=== PATIENT | male | born 1945 | race Caucasian/White ===

== ENCOUNTER 2024-09-17 09:13 | Emergency (ER) | payer OTHER ==
[2024-09-17] MEDS ORDERED: Ipratropium/Albuterol 3 ML NEB ONE (09:23)
[2024-09-17] MEDS ORDERED: Albuterol 2.5 MG (0.5 mL) NEB ONE (09:23)
[2024-09-17] MEDS ORDERED: Dexamethasone 10 MG/ML VIAL ONE (09:27)
[2024-09-17] MEDS ORDERED: LevoFLOXacin 750 mg/D5W 150 ml Premix Bag ONE (09:27)
[2024-09-17] MEDS ORDERED: Magnesium 2 GM/50 ML BAG (IN WATER) ONE (09:28)
[2024-09-17 09:47] LABS: #Basophils 0.08 10x3/uL (0.0-0.2); #Eosinophils 0.21 10x3/uL (0.0-0.5); #Monocytes 0.53 10x3/uL (0.0-1.1); #Neutrophils 9.78 10x3/uL (1.5-8.4); %Basophils 0.7 % (0.0-2.0); %Eosinophils 1.8 % (0.0-6.0); %Monocytes 4.4 % (0.0-10.0); %Neutrophils 81.7 % (40.0-75.0); Hematocrit 41.4 % (38.8-50.0); Mean Corpuscular HGB CONC 33.8 g/dL (32.0-36.0); Mean Corpuscular Hemoglobin 32.6 pg (27.0-33.0); Mean Corpuscular Volume 96.3 fL (81.2-95.1); Mean Platelet Volume 11.2 fL (7.4-10.4); Platelet Count 155 10x3/uL (150-450); RBC Distribution Width 14.8 % (11.5-14.5)
[2024-09-17] MEDS ORDERED: Digoxin 0.5 MG/2 ML AMP ONE (09:52)
[2024-09-17] MEDS ORDERED: dilTIAZem 25 MG/5 ML VIAL ONE (09:52)
[2024-09-17 10:01] LABS: Troponin I 0.019 ng/mL (< 0.028)
[2024-09-17 10:30] LABS: ALT (SGPT) 25 U/L (8-55); AST (SGOT) 33 U/L (5-34); Albumin 3.5 g/dL (3.4-4.8); Alkaline Phosphatase 79 U/L (40-110); Anion Gap 17 mmol/L (10-20); BUN (Urea Nitrogen) 9 mg/dL (8.4-25.7); Bilirubin, Total 0.9 mg/dL (0.2-1.2); Calc. Creatinine Clearance 0 mL/min (70-130); Calcium 8.9 mg/dL (7.8-10.44); Carbon Dioxide 18 mmol/L (23-31); Chloride 109 mmol/L (98-107); Estimated GFR 63; Glucose 85 mg/dL (83-110); Potassium 4.4 mmol/L (3.5-5.1); Protein, Total 6.5 g/dL (5.8-8.1); Sodium 140 mmol/L (136-145)
[2024-09-17] MEDS ORDERED: Iopamidol 370 76% 100 ML VIAL ONE (10:57)
[2024-09-17 11:39] LABS: Bilirubin Neg (Negative); Blood, Urine Negative (Negative); Clarity Clear (Clear); Glucose, Urine (Dipstick) Normal (Negative); Ketone, Urine Negative (Negative); Leukocyte Negative (Negative); Nitrite Negative (Negative); Protein, Urine (Dipstick) 15 mg/dl (Neg-Trace); Urobilinogen Normal mg/dL (Less than 2)
[2024-09-17 11:47] LABS: Bacteria/HPF None Seen HPF (None Seen); CAUTI Indications for Culture Fever or rigors; RBC/HPF 0-3 HPF (0-3); Squamous Epithelial 0-3 HPF (0-3); WBC/HPF None Seen HPF (0-3)
[2024-09-17 11:48] LABS: Urine Culture Reflex No No
[2024-09-17] MEDS ORDERED: Enoxaparin 80 MG (0.8 mL) SYRINGE ONE (12:47)
[2024-09-17] MEDS ORDERED: Etomidate 40 MG (20 mL) VIAL ONE (13:03)
[2024-09-17] MEDS ORDERED: Metoprolol Tartrate 5 MG (5 mL) VIAL ONE (13:34)
== END 2024-09-17 17:27 | disposition short-term general hospital (02) ==
LOC: CSHERS 09:13
DX: J44.1 Chronic obstructive pulmonary disease with (acute) exacerbation (principal); R09.02 Hypoxemia; I48.92 Unspecified atrial flutter; F17.210 Nicotine dependence, cigarettes, uncomplicated
CPT/HCPCS: 71045; 71275; 80053; 81001; 83605; 83880; 84484; 85025; 85379; 87040; 87086; 87428; 92950; 93005; 94640 ×2; 94760; 96372; 96374; 96375; 96376; 99152; 99285; J1100; J1160; J1650; J1956; J3475; 36415; J7611; J7620; Q9967